=== PATIENT | female | born 1975 | race Caucasian/White ===

== ENCOUNTER 2021-04-19 08:53 | Outpatient (REF) | payer OTHER, SELFPAY ==
[2021-04-19 09:54] LABS: Hematocrit 43.1 % (37.0-47.0); Hemoglobin 14.9 g/dl (12.0-16.0); Mean Corpuscular HGB Conc 34.6 g/dl (31.0-35.0); Mean Corpuscular Hemoglobin 30.9 pg (27.0-33.0); Mean Corpuscular Volume 89.4 fL (80.0-98.0); Mean Platelet Volume 8.7 fL (9.4-12.3); Platelet Count 439 X10*3/uL (160-400); Red Blood Count 4.82 X10*6/uL (4.20-5.50); Red Cell Distribution Width 12.6 % (11.0-16.0); White Blood Count 8.7 X10*3/uL (4.8-10.8)
[2021-04-19 09:59] LABS: Alanine Aminotransferase 25 U/L (0-31); Albumin Level 4.3 g/dL (3.5-5.0); Alkaline Phosphatase 69 U/L (39-117); Anion Gap 12 (12-20); Aspartate Amino Transferase 21 U/L (5-31); Bilirubin Total 0.5 mg/dL (0.0-1.0); Blood Urea Nitrogen 8 mg/dL (9-16); Calcium 9.5 mg/dL (8.4-10.2); Carbon Dioxide 24 mmol/L (22-29); Chloride 106 mmol/L (96-108); Cholesterol 219 mg/dL; Estimated Glomerular Filt Rate > 60; Glucose Random 98 mg/dL (60-115); HDL Cholesterol 47 mg/dL; LDL Cholesterol Calculated 156 mg/dl; Potassium 4.2 mmol/L (3.3-5.1); Sodium 138 mmol/L (135-145); Total Protein 7.1 g/dL (6.5-8.0); Triglycerides 83 mg/dL
[2021-04-21 04:52] LABS: Vitamin B12 1956 pg/mL (200-900)
== END 2021-04-19 08:54 | disposition home or self-care (01) ==
LOC: HO.LAB 08:53
PROVIDERS: PCP Registered Nurse; Visit Provider Registered Nurse
DX: Z00.00 Encounter for general adult medical examination without abnormal findings (principal); E53.8 Deficiency of other specified B group vitamins
CPT/HCPCS: 36415; 80053; 80061; 82607; 85027

== ENCOUNTER 2023-02-11 14:19 | Outpatient (AMB) | payer OTHER, SELFPAY ==
--- NOTE | 2023-02-11 14:26 | A.OFFVIS_ITS ---
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 Pt reports loud snoring and gasping arousals. She wakes up with headache, she usually can sleep 7 hrs, but feels always tired. She grind her teeth and uses bite guard. She gained over 50 lb over the last 7-8 years. Sleep questionnaire: Have you ever been diagnosed with a sleep disorder? No. Have you ever had a sleep study in the past? No. Have you ever been treated for a sleep disorder? Uses bite guard. Do you take medications for a sleep disorder? No. Do you snore? Yes, loudly. Do you wake up gasping at night? Yes. Do you have episodes of apneas? Yes. If yes, are they witnessed? Yes, by her . Do you have episodes of nocturnal chest pain or dyspnea? Yes. Do you have difficulty initiating sleep? No. Do you have difficulty maintaining sleep? No. Do you wake up tired? Yes. Do you have headaches upon awakening? Yes. Do you wake up with dry mouth or throat? Yes. Do you have GERD? No. Do you have nocturia? 1-2 twice. Do you have nocturnal leg cramps? Not often. Do you have symptoms of restless legs? Yes. Do you act out your dreams? No. Sleep hygiene questionnaire: What is your usual sleep routine? Usual bedtime is at 10:30-11;pm Usual wake up time is at 6 am. Do you take naps? Not usually. Is your sleep environment cool, dark, and quiet? Yes. Do you exercise? Walking 2-3 times a week. Do you take caffeine or other stimulants? Coffee in the morning. Do you use electronics in bed? Yes, but tries not to use 30 min before bedtime. What is your work schedule? 8 am to 6 pm. Hypersomnolence questionnaire: Do you have daytime tiredness or fatigue? Yes. Do you easily fall asleep when inactive? Yes, sometimes. Have you ever had episodes of sudden weakness? No. Have you ever had episodes of sudden weakness associated with strong emotions? No. PFSH Medical History (Updated 02/11/23 @ 14:42 by James Krishnamurthy CNP) Gallbladder anomaly Family History (Updated 02/11/23 @ 14:31 by Bess Garnett) Mother Hypertension Father Hypertension Social History (Updated 02/11/23 @ 14:31 by Bess Garnett) Alcohol intake: current Comment: Socially Patient Tobacco Use Status: Never used Tobacco Review of Systems Const All systems reviewed & are unremarkable except as noted in HPI and below Physical Exam Vital Signs: Last Vital Signs Pulse 71 02/11/23 14:27 BP 140/92 H 02/11/23 14:27 Pulse Ox 98 02/11/23 14:27 Oxygen Delivery Method Room Air 02/11/23 14:27 BMI result Body Mass Index 34.2 Const General: cooperative Nutritional Appearance: obese Orientation/consciousness: patient oriented x3 HEENT Throat: Yes other (mallampati grade 4) Neck Neck: Yes full ROM and Yes supple Resp Effort & Inspection: normal respiratory effort and able to speak in complete sentences Neuro General: patient oriented x3, gait normal and moves all extremities Cognition (Neuro): normal cognition Gait exam (Neuro): Normal gait present Motor exam (neuro): 5/5 motor strength present throughout, Pronator motor function not present and no tremor noted Psych Appearance: grossly normal Mental Status: mental status grossly normal Speech and movement: Normal speech and movement present Affect: normal affect Attitude: cooperative Assessment & Plan Assessment & Plan (1) Loud snoring: Code(s): R06.83 - Snoring (2) Daytime sleepiness: Code(s): R40.0 - Somnolence (3) Obese: Code(s): E66.9 - Obesity, unspecified Plan Pt is advised to undergo home sleep study to assess for sleep apnea. Will f/u with pt after study to discuss results and appropriate treatment options. Sleep hygiene education provided. Limit electronic use before bedtime. Wt reudction advised. Pt to call with any worsening concerns or questions. Orders: Orders RT home sleep study Today E66.9 - Obesity, unspecified, R06.83 - Snoring, R40.0 - Somnolence Coding Level of Care Code New Pt Level 3 (05615) Diagnoses Loud snoring R06.83 Daytime sleepiness R40.0 Obese E66.9
[2023-02-11 14:27] VITALS: BP 140/92; PULSE 71; O2SAT 98; BMI 34.2
== END 2023-02-11 14:54 | disposition home or self-care (01) ==
PROVIDERS: PCP Family Medicine; Visit Provider Nurse Practitioner Family
DX: R06.83 Snoring (principal); R40.0 Somnolence; E66.9 Obesity, unspecified
CPT/HCPCS: 99203

== ENCOUNTER → 2023-02-11 14:19 | Outpatient (BNVA) | payer OTHER, SELFPAY | PROVIDERS: PCP Family Medicine; Visit Provider Nurse Practitioner Family ==

== ENCOUNTER → 2023-03-31 07:59 | Outpatient (REF) | payer OTHER, SELFPAY | LOC: HO.SL 07:59 | PROVIDERS: PCP Family Medicine; Visit Provider Nurse Practitioner Family | DX: G47.33 Obstructive sleep apnea (adult) (pediatric) (principal); R06.83 Snoring; R40.0 Somnolence; E66.9 Obesity, unspecified | CPT/HCPCS: 95806 ==

== ENCOUNTER → 2023-03-31 08:20 | Outpatient (BNV) | payer OTHER, SELFPAY | PROVIDERS: PCP Family Medicine; Visit Provider Psychiatry & Neurology Neurology | DX: G47.33 Obstructive sleep apnea (adult) (pediatric) (principal) | CPT/HCPCS: 95806 ==

== ENCOUNTER 2024-05-25 14:23 | Outpatient (AMB) | payer OTHER, SELFPAY ==
--- NOTE | 2024-05-25 14:32 | A.OFFVIS_ITS ---
Vital Signs 05/25/24 14:35 Weight 183 lb BP 140/100 H Blood Pressure Location Rt brachial Position Sitting Pulse 73 Pulse Source Pulse Oximeter Pulse Oximetry (%) 97 Intake Visit Reasons: 4 mo f/u Apnea/Snoring Intake Note: Patient presents follow up Apnea/snoring. 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 Her sleep apnea is managed with CPAP- has reduced her snoring significantly higher she does not necessarily wake up with more daytime energy. She reports having had a break due to CPAP mask seal had become cracked and was leaking, as well as some interval travel. however, she recently resumed using her CPAP. Hot flashes suspected from perimenopause interrupt her sleep patterns. perimenopausal symptoms. She notes some perimenopausal symptoms, including daytime warmth, more prominent at night. Gradual weight loss recorded, and during this time she had less snoring but more recently has had an increase in snoring again despite sustained weight loss. She sleeps just over 6 hours per night. Sleep study and PAP review: Does patient have sufficient PAP supplies? Yes Does patient clean PAP supplies on a regular basis? Yes Does the patient use distilled water in their PAP machine water reservoir? Yes PAP compliance report reviewed. Compliance report date range: April 25 2024 through May 24 2024 Overall usage: 13% Usage greater than 4 hours: 13% PAP setting: APAP 6-20 cmH2O with EPR2 Average usage on days used: 6 hours 17 minutes Average mask leakage: unspecified Residual AHI: 0.4 per hour Since the last visit, pt underwent home sleep study which revealed: Sleep study date: 03/31/2023 AHI: 6 per hour REM AHI: unspecified Average SpO2: 95% O2 kelley: 83% SpO2 under 88% for: 0.7 minute [facility] Medical History (Updated 05/25/24 @ 18:12 by ALFONZO Ramon) Gallbladder anomaly Family History Mother Hypertension Father Hypertension Social History Alcohol intake: current Comment: Socially Patient Tobacco Use Status: Never used Tobacco Physical Exam Vital Signs: Last Vital Signs Pulse 73 05/25/24 14:35 BP 140/100 H 05/25/24 14:35 Pulse Ox 97 05/25/24 14:35 Const General: no acute distress Orientation/consciousness: patient oriented x3 Neuro General: patient oriented x3 Psych Mental Status: mental status grossly normal Speech and movement: Clear speech present Attitude: cooperative Assessment & Plan Assessment & Plan (1) Mild obstructive sleep apnea: Code(s): G47.33 - Obstructive sleep apnea (adult) (pediatric) Category: Medical (2) Loud snoring: Code(s): R06.83 - Snoring Category: Medical (3) Daytime sleepiness: Code(s): R40.0 - Somnolence Category: Medical Plan Continue CPAP usage, focus on mask replacement for effective treatment. encouraged to try to sleep at least 7 hours per night, which may improve daytime tiredness symptoms. Cooling linens and bedclothes recommended for perimenopausal symptoms. Regular monitoring of progress advised, with further specialist evaluation if issues persist. CPAP compliance and symptom changes to be reassessed regularly. - Continue to use APAP 6-20 cmH2O with EPR 2 nightly with a goal of greater than 4 hours nightly, as patient is experiencing good clinical effect from use. - Clean and change PAP supplies routinely, including filters, masks, tubing, and water reservoir. - Use distilled water in PAP water reservoir. Patient was informed and verbally consented to the use of an ambient scribe for clinic note documentation during this visit. Pt to follow-up in 6 months or sooner prn. Coding Level of Care Code Est Pt Level 3 (34380) Diagnoses Mild obstructive sleep apnea G47.33 Loud snoring R06.83 Daytime sleepiness R40.0
[2024-05-25 14:35] VITALS: BP 140/100; PULSE 73; O2SAT 97
--- OUTSIDE RECORDS SUMMARY | 2024-05-25 17:01 | XMS_ITS | Data Portability ---
Author Organization [place] [facility], [facility] Address [address] [place] [address] Assessment No assessment recorded. Plan of Treatment Reminders Order Date Submit Date Provider Last Modified By Organization Details Last Modified Time Details Appointments None recorded. Lab None recorded. Referral None recorded. Procedures None recorded. Surgeries None recorded. Imaging None recorded. Medication Orders Bactrim DS 800 mg-160 mg tablet 025 025 [email or web address] [facility], [address], [place], [address], 14:07:11 Patient TargetsNo targets recorded. Patient Instructions Encounter Date Encounter Id Patient Instructions Last Modified By Organization Details Last Modified Time 03/27/2024 [id number] cellulitis: care instructions [email or web address] Not available 03/27/2024 13:04:41 Take medication as directed. Discussed the risks and adverse effects of medication with patient. You may take a probiotic with the antibiotic (i.e., yogurt with live cultures or capsules of OTC probiotic that have lactobacillus) to protect your GI bassem (good gut bacteria). Keep any open areas covered with non-adhesive dressing and/or OTC neosporin. Keep the area clean using antibacterial soap and water. Apply cool compresses for local relief. Take OTC Tylenol or Advil as needed for pain. If symptoms worsen or new symptoms, such as increased redness/swelling, numbness, tingling, fever or chills, develop, please go to the ER immediately. If symptoms do not improve in a few days, please follow up with your PCP. Patient states understanding and agrees with plan. All questions were answered. [email or web address] Not available 03/27/2024 13:04:56 Reason for Referral None Reported. Problems No Known Problems Procedures Surgical History Date Name Laterality Status Provider Name and Address Organization Details Recorded Time [facility] [place] [facility] 03/27/2024 12:37:22 [facility] [place] [facility] 03/27/2024 12:37:27 Imaging Results None recorded. Procedure Notes None recorded. Medical Equipment None Reported. Allergies Allergen ID Allergen Name Allergen Category Reaction Reaction Severity Criticality Documentation Date Start Date Code Code System Note Provider Name and Address Organization Details Recorded Time 37791 pseudoeph edrine Not available palpitati ons Not available Not available 03/27/2024 8896 RxNorm Not Available Not Available Not Available No known drug allergies Medications Name Sig Start Date Stop Date Status Note LastModified by Organization Details LastModified Time mupirocin 2 % topical ointment APPLY A THIN LAYER TO A CLEAN RIGHT THUMB/NAIL CUTICLE AND DISTAL NAIL BEDTIME TWICE DAILY FOR 10 DAYS active Not Available Not Available No t Available Bactrim DS 800 mg-160 mg tablet Take 1 tablet every 12 hours by oral route as directed for 10 days. 025 active Not Available Not Available Not Avai lable Simpesse active Not Available Not Avai lable Not Available Vitals Date Recorded Body weight Body mass index (BMI) Body height Body temperature Oxygen saturation Oxygen saturation in Arterial blood by Pulse oximetry Heart rate Respiratory rate Systolic blood pressure Diastolic blood pressure Provider Name and Address Organization Details Last Updated DateTime 99028.6 7 g 31.6 kg/m2 167.64 cm 98.7 [degF] 99 % 99 % 103 /min 18 /min 166 mm[Hg] 96 mm[Hg] [facility] [place] [facility] 12:43:57 Date Recorded Systolic blood pressure Diastolic blood pressure Provider Name and Address Organization Details Last Updated DateTime 03/27/2024 148 mm[Hg] 96 mm[Hg] DANICA WEBB PA-C [address] [facility], [place], [address], [place] - [facility] 03/27/2024 13:31:52 Social History Question Answer Notes LastModified by Organizat ion Details LastModified Time Tobacco Smoking Status Never Smoker [facility] [place] [facility], [place] - [facility] 03/27/2024 12:36:52 What Is Your Level Of Alcohol Consumption? Occasional Information not available 03/27/2024 Sex: Unknown Functional Status None recorded. Mental Status None recorded. Family History Relationship Description Onset Age of this Age Resolved Age Notes LastModified by Organization Details LastModified Time Father No current problems or disability [email or web address] Not available 03/27 12:37:38 Mother No current problems or disability [email or web address] Not available 03/27 12:37:38 Medical History Condition Response Anxiety Disorder N HIV N Diabetes N Coronary Artery Disease N Gout N High Blood Pressure N Arthritis N Kidney Stones N Hyperthyroidism N Tuberculosis N GERD/Reflux Disease or Ulcers N Cancer N Stroke N Diverticulitis N Hypothyroidism N COPD N Depression N Asthma N High Cholesterol N Liver Disease N Heart Disease N Pulmonary Embolism N Osteoporosis N Kidney Disease N Gynecological History Statement/Question Response LMP Unknown Obstetrics History GPAL:G 0 P 0 0 0 0 Past Encounters Encounter ID Performer Location Encounter Start Date Encounter Closed Date Diagnosis/Indication Diagnosis SNOMED-CT Code Diagnosis ICD10 Code Diagnosis Note [id number] DANICA WEBB PA-C [facility] [address] [place] [address] 03/27/2024 12:15:00 03/27/2024 13:09:48 Cellulitis 226069999 L03.90 Pain in right thumb 1076 [id number] M79.644 Health Concerns Section Related Observation LastModified by Organization Detai ls LastModified Time None Recorded Concern Status LastModified by Organization Details LastModified Time None Recorded Advance Directives Directive None Recorded Payers Encounter Date Sequence Insurance Name Policy Number Policy Stuart Covered Member ID Stuart Member ID Guarantor Name 03/27/2024 1 *SELF PAY* Bianca Damon Notes Date Note Type Note Provider Name and Address Organization Details Recorded Time 03/27/2024 text/html Rash/Skin LesionReported bypatient.Location:h ands (right thumb) Quality:not itchy; not bleeding;painful;red ;localized;spreading ;swollen Severity:moderate Duration:has noted for (5 days) Onset/Timing:abrupt onset Context:no new detergents or skin products; no one else with similar rash; no tick/insect bites; not scratching; no sun exposure; no exposure to plants; no new exposure to pets or other animals; no recent travel; no new medications; no new foods; no recent camping;exposure to chemicals(gel manicure) Alleviating Factors:nothing gives relief Aggravating Factors:pressure Associated Symptoms:no fever; no cold symptoms; no nausea; no vomiting; no diarrhea; no urinary symptoms; no chills; no fatigue; no allergies; no history of asthma Patient is a 48 year old female who presents for right thumb redness and swelling that started 5 days ago. Patient states she had her nails done 10 days ago at the salon that she goes to regularly. She has taken Tylenol and soaked the hand in warm water with no relief. Patient states now the redness is moving towards her forearm. No history of fever. DANICA WEBB PA-C [address] [place], [address], [facility] - [facility] 03/27/2024 14:07:22 OBGyn Episode No OBEpisode recorded.
== END 2024-05-25 15:22 | disposition home or self-care (01) ==
LOC: HO.HSMS 14:24
PROVIDERS: PCP Internal Medicine; Visit Provider Nurse Practitioner Family
DX: G47.33 Obstructive sleep apnea (adult) (pediatric) (principal); R06.83 Snoring; R40.0 Somnolence
CPT/HCPCS: 99213

== ENCOUNTER 2024-11-27 14:53 | Outpatient (AMB) | payer OTHER, SELFPAY ==
[2024-11-27 15:13] VITALS: BP 142/100; PULSE 100; O2SAT 99
--- NOTE | 2024-11-27 15:13 | MHC.OFFVIS ---
Vital Signs 11/27/24 15:13 Weight 167 lb BP 142/100 H Blood Pressure Location Lt brachial Position Sitting Pulse 100 Pulse Source Pulse Oximeter Pulse Oximetry (%) 99 Oxygen Delivery Method Room Air Intake Visit Reasons: 6m follow up Apnea/Snoring Intake Note: Patient presents follow up Apnea/snoring. 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 Patient reports that since her last visit, she has had an intentional weight loss through lifestyle and dietary changes, including eliminating sugar from her diet and regularly doing Pilates in her home. Weight loss noted 15 lb since her last visit here 6 months ago. Since his weight loss, she has paused using her CPAP machine, as she now finds using the CPAP to be more disruptive to her sleep than beneficial. 03/31/2023, home sleep study showed mild obstructive sleep apnea AHI: 6 per hour Average SpO2: 95% O2 kelley: 83% SpO2 under 88% for: 0.7 minute [facility] Medical History (Updated 11/27/24 @ 17:26 by ALFONZO Ramon) Gallbladder anomaly Family History Mother Hypertension Father Hypertension Social History Alcohol intake: current Comment: Socially Patient Tobacco Use Status: Never used Tobacco Physical Exam Vital Signs: Last Vital Signs Pulse 100 11/27/24 15:13 BP 142/100 H 11/27/24 15:13 Pulse Ox 99 11/27/24 15:13 Oxygen Delivery Method Room Air 11/27/24 15:13 Const General: no acute distress Orientation/consciousness: patient oriented x3 Neuro General: patient oriented x3 and moves all extremities Cranial nerves: Yes Normal facial strength present Gait exam (Neuro): Normal gait present Psych Mental Status: mental status grossly normal Speech and movement: Clear speech present Attitude: cooperative Assessment & Plan Assessment & Plan (1) Mild obstructive sleep apnea: Code(s): G47.33 - Obstructive sleep apnea (adult) (pediatric) Category: Medical (2) Loud snoring: Comment: Improve Code(s): R06.83 - Snoring Category: Medical (3) Daytime sleepiness: Comment: Improved Code(s): R40.0 - Somnolence Category: Medical Plan May continue to hold APAP at 6-20 cmH2O with EPR 2, as the patient is sleeping better and experiencing improved daytime energy since continuing to lose weight, adhering to a sugar-free diet, and engaging in regular physical activity. May resume PAP therapy if symptoms of snoring, hypersomnia, or difficulty sleeping return. Patient encouraged to consider adding weight training exercises to her current exercise regimen, to optimize overall health benefits, including improving sleep quality and bone density, as the patient is currently perimenopausal. Pt to follow-up in 12 months or sooner prn. Coding Level of Care Code Est Pt Level 3 (40487) Diagnoses Mild obstructive sleep apnea G47.33 Loud snoring R06.83 Daytime sleepiness R40.0
== END 2024-11-27 16:08 | disposition home or self-care (01) ==
LOC: HO.HSMS 14:54
PROVIDERS: PCP Internal Medicine; Visit Provider Nurse Practitioner Family
DX: G47.33 Obstructive sleep apnea (adult) (pediatric) (principal); R06.83 Snoring; R40.0 Somnolence
CPT/HCPCS: 99213